=== PATIENT | male | born 1995 | race Caucasian/White ===

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

== ENCOUNTER 2017-06-07 17:36 | Emergency (ER) | payer OTHER ==
[2017-06-07 18:51] LABS: ABS Basophils 0 10^3/ul (0-0.2); ABS Eosinophils 0 10^3/ul (0-0.6); ABS Lymphocytes 1.6 10^3/ul (1.0-4.8); ABS Monocytes 0.5 10^3/ul (0-0.8); ABS Neutrophils 6.5 10^3/ul (1.5-7.7); ABS Nucleated RBC 0 10^3/ul; Eosinophil % 0.1 % (0-6); Hematocrit 46 % (42-52); Hemoglobin 16.1 g/dl (14.0-18.0); Lymphocyte % 18.8 % (25-47); Mean Corpuscular HGB Conc 35 g/dl (31-36); Mean Corpuscular Hemoglobin 30 pg (27-31); Mean Corpuscular Volume 86 fL (80-94); Mean Platelet Volume 8 um3 (7.4-10.4); Nucleated Red Blood Cells % 0; Platelet Count 212 10^3/ul (150-450); Red Blood Count 5.37 10^6/ul (4.0-5.4); Red Cell Distribution Width 13 % (10.5-15); White Blood Count 8.7 10^3/ul (3.5-10.8)
[2017-06-07 19:09] LABS: EGFR Non-African American 102.1 (>60)
[2017-06-07 19:16] LABS: Urine Appearance Clear; Urine Blood Negative (Negative); Urine Color Straw; Urine Ketones Negative (Negative); Urine Protein Negative (Negative); Urine Specific Gravity 1.008 (1.010-1.030); Urine Urobilinogen Negative (Negative)
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
[2017-06-08 09:51] VITALS: BP 131/72
--- NOTE | 2017-06-08 09:55 | PN ---
ED Flex Patient Progress Note Date of Service: 06/08/17 Subjective: This is a 21 year-old M who is pending to being observed secondary to threatening to hurt himself. Pt offers no complaints at this time. He states he slept well/ Objective: Vitals: Most recent vital signs documented below. General NAD, Alert and oriented x3. Heart: rrr at 70 bpm Lungs: CTA or with rales, rhonchi, wheezing abd: soft nontender Laboratory: Current laboratory results documented below. Assessment: persistent mood disorder Plan: Pending psychiatric to observe to obtain collateral Condition: Stable Vital Signs Temp Pulse Resp BP Pulse Ox 98.2 F 83 16 131/72 100 06/08/17 09:50 06/08/17 09:50 06/08/17 09:50 06/08/17 09:50 06/08/17 09:50 Lab Results - Entire Visit 06/07/17 06/07/17 06/07/17 18:35 18:35 18:26 WBC 8.7 RBC 5.37 Hgb 16.1 Hct 46 MCV 86 MCH 30 MCHC 35 RDW 13 Plt Count 212 MPV 8 Neut % (Auto) 74.5 Lymph % (Auto) 18.8 L [place] % (Auto) 6.1 Eos % (Auto) 0.1 Baso % (Auto) 0.5 Absolute Neuts (auto) 6.5 Absolute Lymphs (auto) 1.6 Absolute Monos (auto) 0.5 Absolute Eos (auto) 0 Absolute Basos (auto) 0 Absolute Nucleated RBC 0 Nucleated RBC % 0 Sodium 135 Potassium 3.7 Chloride 100 L Carbon Dioxide 28 Anion Gap 7 BUN 10 Creatinine 0.95 Est GFR ( Amer) 131.3 Est GFR (Non-Af Amer) 102.1 BUN/Creatinine Ratio 10.5 Glucose 121 H Calcium 9.6 Total Bilirubin 0.60 AST 20 ALT 10 Alkaline Phosphatase 60 Total Protein 7.8 Albumin 4.6 Globulin 3.2 Albumin/Globulin Ratio 1.4 TSH 1.61 Urine Color Straw Urine Appearance Clear Urine pH 7.0 Ur Specific [place] 1.008 L Urine Protein Negative Urine Ketones Negative Urine Blood Negative Urine Nitrate Negative Urine Bilirubin Negative Urine Urobilinogen Negative Ur Leukocyte Esterase Negative Urine Glucose Negative Salicylates < 2.50 Urine Opiates Screen Acetaminophen < 15 Ur Barbiturates Screen Ur Phencyclidine Scrn Ur Amphetamines Screen U Benzodiazepines Scrn Urine Cocaine Screen U Cannabinoids Screen Serum Alcohol < 10 06/07/17 18:26 WBC RBC Hgb Hct MCV MCH MCHC RDW Plt Count MPV Neut % (Auto) Lymph % (Auto) [place] % (Auto) Eos % (Auto) Baso % (Auto) Absolute Neuts (auto) Absolute Lymphs (auto) Absolute Monos (auto) Absolute Eos (auto) Absolute Basos (auto) Absolute Nucleated RBC Nucleated RBC % Sodium Potassium Chloride Carbon Dioxide Anion Gap BUN Creatinine Est GFR ( Amer) Est GFR (Non-Af Amer) BUN/Creatinine Ratio Glucose Calcium Total Bilirubin AST ALT Alkaline Phosphatase Total Protein Albumin Globulin Albumin/Globulin Ratio TSH Urine Color Urine Appearance Urine pH Ur Specific [place] Urine Protein Urine Ketones Urine Blood Urine Nitrate Urine Bilirubin Urine Urobilinogen Ur Leukocyte Esterase Urine Glucose Salicylates Urine Opiates Screen None detected Acetaminophen Ur Barbiturates Screen None detected Ur Phencyclidine Scrn None detected Ur Amphetamines Screen None detected U Benzodiazepines Scrn None detected Urine Cocaine Screen None detected U Cannabinoids Screen Presumptive positive H Serum Alcohol
--- NOTE | 2017-06-08 11:03 | ED ---
Joe Saavedra Angela, scribed for Mariusz Fernandez MD on 06/08/17 at 1100 . Progress - Progress Note Progress Note: This pt was evaluated by [facility] and his case was reviewed by Dr. Khan. Dr. Khan did an assessment and plan. They feel comfortable with sending the pt home. Pt will be discharged to home, in stable condition, with a diagnosis of anxiety. - Consult/PCP Time Called: 17:40 Course/Dx - Diagnoses Provider Diagnoses: Anxiety The documentation as recorded by the Joe richardson Angela accurately reflects the service I personally performed and the decisions made by Jim aguila Walter, MD.
== END 2017-06-08 10:52 ==
LOC: ED 17:36
DX: F41.9 Anxiety disorder, unspecified (principal); F34.9 Persistent mood [affective] disorder, unspecified
CPT/HCPCS: 36415; 80053; 80307; 80320; 80329; 81003; 84443; 85025; 99284; G0480